=== PATIENT | female | born 1940 | race Caucasian/White ===

== ENCOUNTER 2022-01-20 01:50 | Emergency (ER) | payer MEDICARE, SELFPAY ==
[2022-01-20 02:09] VITALS: BP 150/60; PULSE 70; RESP 16; TEMP 36.7; O2SAT 93; BMI 48.0
[2022-01-20 02:23] LABS: Basophils # 0.1 K/mm3 (0-0.2); Basophils % 1.1 % (0.1-2.0); Eosinophils # 0.4 K/mm3 (0.0-0.4); Hematocrit 39.5 % (37.0-47.0); Lymphocytes # 2.4 K/mm3 (0.7-4.5); Lymphocytes % 29.5 % (10-50); Mean Corpuscular HGB Conc 32.8 g/dL (31.8-35.4); Mean Corpuscular Hemoglobin 31.9 pg (27.0-31.2); Mean Corpuscular Volume 97.3 fl (81-99); Mean Platelet Volume 8.5 fl (7.4-10.4); Monocytes # 0.5 K/mm3 (0.1-1.0); Monocytes % 6.6 % (1.7-9.3); Neutrophils # 4.7 K/mm3 (1.8-7.8); Neutrophils % 57.8 % (37.0-80.0); Platelet Count 287 K/mm3 (142-424); Red Blood Count 4.06 M/mm3 (4.20-5.40); Red Cell Distribution Width 14.9 % (11.5-17.5); White Blood Count 8.2 K/mm3 (4.8-10.8)
[2022-01-20 02:25] LABS: Chloride 100 mmol/L (98-107); Potassium 3.9 mmoL/L (3.5-5.1); Sodium 138 mmol/L (136-145)
[2022-01-20 02:33] LABS: C-Reactive Protein 1.8 mg/L (0-4)
[2022-01-20 02:39] LABS: NT Pro Brain Natriuretic Pep. 133 pg/mL (0-450)
[2022-01-20 02:47] LABS: Erythrocyte Sedimentation Rate 21 mm/hr (0-30); Procalcitonin 0.037 ng/mL (0.0-2.0)
[2022-01-20 02:54] LABS: Anion Gap 14.9 mEq/L (5-15); Blood Urea Nitrogen 14 mg/dl (7-17); Calcium 8.7 mg/dl (8.4-10.2); Carbon Dioxide 27 mmol/L (22.0-30.0); Creatinine Clearance Estimated 39 mL/min (50-200); Estimated Glomerular Filt Rate 119 ml/min (>60); GFR (African American) 144 ML/MIN (>60); Glucose 108 mg/dl (74-100)
--- NOTE | 2022-01-20 03:04 | HMH.EDEXTP ---
Discharge Plan Disposition Patient Disposition: Home, Self-Care Prescriptions Prescriptions: New cephalexin [cephalexin] 500 mg capsule 500 mg PO TID Qty: 30 0RF clindamycin HCl 300 mg capsule 300 mg PO TID Qty: 30 0RF No Action atorvastatin 40 mg Tablet 40 mg PO HS hydrochlorothiazide 50 mg Tablet 50 mg PO DAILY potassium chloride 10 mEq Tablet Extended Release 10 meq PO DAILY amlodipine 5 mg Tablet 5 mg PO DAILY propranolol 40 mg Tablet 40 mg PO BID ascorbic acid (vitamin C) [Vitamin C] 500 mg Tablet 500 mg PO DAILY benazepril 40 mg Tablet 40 mg PO DAILY oxybutynin chloride 5 mg Tablet 5 mg PO DAILY metformin 500 mg Tablet Extended Release 24 Hr 500 mg PO DAILY vitamin B complex Capsule 1 cap PO DAILY iron 18 mg Tablet 18 mg PO DAILY cholecalciferol (vitamin D3) [Vitamin D3] 125 mcg (5,000 unit) Tablet 125 mcg PO DAILY Referrals Follow up/Referrals: Ba Cast MD [Primary Care Provider] - See instructions Clinical Impressions Clinical Impression: Cellulitis Instructions Patient Instructions: DI for Cellulitis -- Adult Discharge ED Provider: Nam Redmond Extremity Problem HPI General Chief complaint: Extremity Problem,Nontraumatic Stated complaint: red,swollen legs with drainage Time Seen by Provider: 01/20/22 03:05 Mode of Arrival: Wheelchair Source of Information: Patient, Relative and Medical Record Limitations: No Limitations Description of Symptoms (Recalled from ER Triage Doc. by RN): Patient c/o bilateral calf and leg pain for the prior 3 days. States that she has thickened skin on both of his calfs and has had bumps on them as well, however, for the prior 3 days they have been very tender and reddened. Denies any injury. History of Present Illness HPI Narrative: pt with hx of htn and diabetes and has progressive pain and swelling lt>rt - has hx of cellulitis in past - no trauma MD Complaint: extremity pain and extremity swelling Onset (ago): day(s) Consistency: constant Location: left, right and lower extremity Associated symptoms: rash Related Data Home Medications Medication Instructions Recorded Confirmed amlodipine 5 mg tablet 5 mg PO DAILY High blood pressure 01/20/22 01/20/22 ascorbic acid (vitamin C) 500 mg 500 mg PO DAILY Supplement 01/20/22 01/20/22 tablet (Vitamin C) atorvastatin 40 mg tablet 40 mg PO HS High cholesterol 01/20/22 01/20/22 benazepril 40 mg tablet 40 mg PO DAILY High blood pressure 01/20/22 01/20/22 cholecalciferol (vitamin D3) 125 125 mcg PO DAILY Supplement 01/20/22 01/20/22 mcg (5,000 unit) tablet (Vitamin D3) hydrochlorothiazide 50 mg tablet 50 mg PO DAILY High blood pressure 01/20/22 01/20/22 iron 18 mg tablet 18 mg PO DAILY Supplement 01/20/22 01/20/22 metformin 500 mg tablet,extended 500 mg PO DAILY dm 01/20/22 01/20/22 release 24 hr oxybutynin chloride 5 mg tablet 5 mg PO DAILY overactive bladder 01/20/22 01/20/22 potassium chloride 10 mEq 10 meq PO DAILY Supplement 01/20/22 01/20/22 tablet,extended release propranolol 40 mg tablet 40 mg PO BID High blood pressure 01/20/22 01/20/22 vitamin B complex 1 cap PO DAILY Supplement 01/20/22 01/20/22 Previous Rx's Medication Instructions Recorded cephalexin 500 mg capsule 500 mg PO TID #30 caps 01/20/22 clindamycin HCl 300 mg capsule 300 mg PO TID #30 caps 01/20/22 Allergies Allergy/AdvReac Type Severity Reaction Status Date / Time furosemide [From Lasix] AdvReac Mild Dizziness Verified 01/20/22 02:15 PFSH PFS Social History Smoking Status: Never smoker alcohol intake: never current occupational status: retired Travel in the last 8 weeks: None ROS Obtained: Yes All systems reviewed & no additional complaints except as documented Physical Exam General General appearance: alert and obese Head Head exam: normocephalic Eye Eye exam: Present PERRL and EOMI ENT
--- NOTE | 2022-01-20 03:20 | PC.NURSE ---
pt up to restroom
[2022-01-20 03:53] VITALS: BP 142/64; PULSE 78; RESP 18; TEMP 36.8; O2SAT 98
[2022-01-20 04:02] LABS: Bilirubin,Unconjugated 0.2 mg/dL (0.0-1.1)
[2022-01-20 04:03] LABS: Alanine Aminotransferase 21 U/L (12-78); Alkaline Phosphatase 69 U/L (38-126); Aspartate Amino Transferase 31 U/L (14-36); Bilirubin,Indirect 0.1 mg/dL (0.0-0.9); Bilirubin,Total < 0.1 mg/dl (0.2-1.3); Total Protein,Serum 6.8 g/dl (6.3-8.2)
== END 2022-01-20 04:02 | disposition home or self-care (01) ==
PROVIDERS: Emergency Provider Emergency Medicine; PCP Emergency Medicine
DX: L03.115 Cellulitis of right lower limb; L03.116 Cellulitis of left lower limb; Z79.84 Long term (current) use of oral hypoglycemic drugs; Z79.899 Other long term (current) drug therapy; Z88.8 Allergy status to other drugs, medicaments and biological substances; I10 Essential (primary) hypertension; E11.9 Type 2 diabetes mellitus without complications; N32.81 Overactive bladder
CPT/HCPCS: 80048; 80076; 83036; 83880; 84145; 85025; 85651; 86140; 96365; 96375; 99284; J0696

== ENCOUNTER → 2022-02-06 10:25 | Outpatient (CLI) | payer MEDICARE, SELFPAY ==
--- NOTE | 2022-02-06 10:25 | MM_ITS ---
PROCEDURE INFORMATION: Exam: Bilateral Screening 3D Mammography Exam date and time: 02/06/2022 10:27 AM Age: 81 years old Clinical indication: Screening examination. No family history of breast cancer. TECHNIQUE: Imaging protocol: Bilateral Screening tomosynthesis and 2D mammography including computer-aided detection (CAD) when performed. COMPARISON: No relevant prior studies available. If prior mammograms are provided, I am happy to add an addendum. FINDINGS: MAMMOGRAPHY: Breast composition: The breasts are almost entirely fatty. Mass: No suspicious mass. Architectural distortion: None. Calcifications: No suspicious calcifications. Asymmetric density: None. Skin thickening: None. Axillary adenopathy: None. IMPRESSION: No mammographic evidence of malignancy. Annual screening is recommended unless otherwise clinically indicated. ASSESSMENT: BI-RADS Category 1: Negative
== END ==
PROVIDERS: PCP Family Medicine; Visit Provider Family Medicine
DX: I10 Essential (primary) hypertension; R60.9 Edema, unspecified; Z12.31 Encounter for screening mammogram for malignant neoplasm of breast; R06.02 Shortness of breath
CPT/HCPCS: 77063; 77067; 93306

== ENCOUNTER → 2022-03-03 15:51 | Outpatient (CLI) | payer MEDICARE, SELFPAY ==
--- NOTE | 2022-03-03 15:59 | XR_ITS ---
FINAL REPORT CLINICAL HISTORY: knee pain FINDINGS: RIGHT KNEE 3 views of the right knee were obtained. There is no acute fracture or dislocation. Visualized joint spaces are normally aligned. There is advanced medial compartment and patellofemoral joint space narrowing. There is a small joint effusion. IMPRESSION: Advanced changes of osteoarthritis in the medial compartment and patellofemoral joints. Reviewed, Interpreted and Dictated by Aguila Louis MD Transcribed by Jazzmine Nunes Authenticated and [facility]
--- NOTE | 2022-03-03 15:59 | XR_ITS ---
FINAL REPORT CLINICAL HISTORY: knee pain FINDINGS: LEFT KNEE 3 views of the left knee were obtained. There is no acute fracture or dislocation. Visualized joint spaces are normally aligned. There is advanced medial compartment and patellofemoral joint space narrowing. There is subchondral sclerosis. There is osteophyte formation. There is a small joint effusion. IMPRESSION: Advanced osteoarthritis in the medial compartment and patellofemoral joints. Reviewed, Interpreted and Dictated by Aguila Louis MD Transcribed by Jazzmine Nunes Authenticated and . [facility]
== END ==
LOC: RAD 15:54
PROVIDERS: PCP Family Medicine; Visit Provider Orthopaedic Surgery
DX: M25.561 Pain in right knee (principal); M25.562 Pain in left knee
CPT/HCPCS: 73562

== ENCOUNTER → 2022-04-03 14:20 | Outpatient (CLI) | payer MEDICARE, SELFPAY ==
[2022-04-03 18:44] LABS: Microscopic, Urine URINE MICROSCOPIC (MICROSCOPIC)
[2022-04-03 19:28] LABS: Appearance,Urine SL CLOUDY (Clear); Bilirubin,Urine Negative (Negative); Blood, Urine 2+ (Negative); Color,Urine YELLOW (Yellow); Glucose,Urine (UA) Negative (Negative); Ketones,Urine Negative (Negative); Leukocyte Esterase,Urine 3+ (Negative); Nitrate,Urine Negative (Negative); PH,Urine 6.5 (5.0-8.5); Protein,Urine Negative (Negative); Urobilinogen,Urine 0.2 EU/dl (0.2)
[2022-04-03 20:03] LABS: Bacteria,Urine 4+ /lpf; WBC,Urine 20-50 #/hpf (0-3)
== END ==
PROVIDERS: PCP Student in an Organized Health Care Education/Training Program; Visit Provider Student in an Organized Health Care Education/Training Program
DX: N39.0 Urinary tract infection, site not specified (principal); B96.29 Other Escherichia coli [E. coli] as the cause of diseases classified elsewhere
CPT/HCPCS: 81001; 87086; 87088; 87186

== ENCOUNTER → 2022-04-24 10:13 | Outpatient (CLI) | payer MEDICARE, SELFPAY ==
[2022-04-24 10:32] LABS: Microscopic, Urine URINE MICROSCOPIC (MICROSCOPIC)
[2022-04-24 12:17] LABS: Alanine Aminotransferase 23 U/L (12-78); Albumin Level 4.1 g/dl (3.5-5.0); Albumin/Globulin Ratio 1.6 (1.1-1.8); Alkaline Phosphatase 62 U/L (38-126); Anion Gap 11.2 mEq/L (5-15); Aspartate Amino Transferase 26 U/L (14-36); Bilirubin,Total 0.4 mg/dl (0.2-1.3); Blood Urea Nitrogen 15 mg/dl (7-17); Carbon Dioxide 30 mmol/L (22.0-30.0); Chloride 101 mmol/L (98-107); Chol/HDL Ratio 2.1 (1-3.5); Cholesterol 132 mg/dl (140-200); Estimated Glomerular Filt Rate 119 ml/min (>60); GFR (African American) 144 ML/MIN (>60); Globulin 2.6 g/dL (1.3-3.2); Glucose 121 mg/dl (74-100); HDL Cholesterol 63 mg/dl (40-60); Potassium 4.2 mmoL/L (3.5-5.1); Sodium 138 mmol/L (136-145); Total Protein,Serum 6.7 g/dl (6.3-8.2); Triglycerides 71 mg/dl (30-150); VLDL Cholesterol 14 mg/dL (0-40)
[2022-04-24 12:27] LABS: Hemoglobin A1C 6.2 % (4.0-6.0)
[2022-04-24 12:28] LABS: Direct LDL Cholesterol 49.72 mg/dL (100-129)
[2022-04-24 12:38] LABS: Appearance,Urine CLEAR (Clear); Bilirubin,Urine Negative (Negative); Blood, Urine Negative (Negative); Color,Urine YELLOW (Yellow); Glucose,Urine (UA) Negative (Negative); Ketones,Urine Negative (Negative); Leukocyte Esterase,Urine Negative (Negative); Nitrate,Urine Negative (Negative); PH,Urine 6.5 (5.0-8.5); Protein,Urine Negative (Negative); Specific Gravity, Urine 1.015 (1.005-1.030); Urobilinogen,Urine 0.2 EU/dl (0.2)
[2022-04-24 12:47] LABS: Thyroid Stimulating Hormone 1.19 uIU/mL (0.465-4.68)
[2022-04-24 12:53] LABS: Bacteria,Urine Trace /lpf; Squamous Epithelial Cell,Urine Occasional #/hpf (0-5); WBC,Urine Occasional #/hpf (0-3)
[2022-05-02 19:08] LABS: 1,25 Dihydroxy Vitamin D 57 pg/mL (.); 1,25-Dihydroxy, Vitamin D-2 <10 pg/mL (.); 1,25-Dihydroxy, Vitamin D-3 52 pg/mL (.)
== END ==
PROVIDERS: PCP Family Medicine; Visit Provider Family Medicine
DX: Z98.84 Bariatric surgery status (principal); I10 Essential (primary) hypertension; E11.9 Type 2 diabetes mellitus without complications; E78.5 Hyperlipidemia, unspecified; G89.29 Other chronic pain; L03.90 Cellulitis, unspecified; N32.81 Overactive bladder; M25.561 Pain in right knee; E66.9 Obesity, unspecified; Z68.42 Body mass index [BMI] 45.0-49.9, adult; Z79.84 Long term (current) use of oral hypoglycemic drugs
CPT/HCPCS: 36415; 80053; 80061; 81001; 82652; 83036; 84443

== ENCOUNTER → 2022-07-07 14:14 | Outpatient (CLI) | payer MEDICARE, SELFPAY ==
[2022-07-07 15:33] LABS: Hemoglobin A1C 6.4 % (4.0-6.0)
[2022-07-07 15:44] LABS: Alanine Aminotransferase 24 U/L (12-78); Albumin Level 4.1 g/dl (3.5-5.0); Albumin/Globulin Ratio 1.6 (1.1-1.8); Alkaline Phosphatase 59 U/L (38-126); Anion Gap 8.1 mEq/L (5-15); Aspartate Amino Transferase 25 U/L (14-36); Bilirubin,Total 0.4 mg/dl (0.2-1.3); Blood Urea Nitrogen 17 mg/dl (7-17); Calcium 8.8 mg/dl (8.4-10.2); Carbon Dioxide 32 mmol/L (22.0-30.0); Chloride 101 mmol/L (98-107); Estimated Glomerular Filt Rate 119 ml/min (>60); GFR (African American) 144 ML/MIN (>60); Globulin 2.5 g/dL (1.3-3.2); Glucose 106 mg/dl (74-100); Potassium 5.1 mmoL/L (3.5-5.1); Sodium 136 mmol/L (136-145); Total Protein,Serum 6.6 g/dl (6.3-8.2)
== END ==
PROVIDERS: PCP Family Medicine; Visit Provider Family Medicine
DX: E11.9 Type 2 diabetes mellitus without complications (principal); Z79.84 Long term (current) use of oral hypoglycemic drugs
CPT/HCPCS: 36415; 80053; 83036

== ENCOUNTER → 2022-10-06 09:40 | Outpatient (CLI) | payer MEDICARE, SELFPAY ==
[2022-10-06 10:23] LABS: Hemoglobin A1C 6.2 % (4.0-6.0)
[2022-10-06 10:34] LABS: Alanine Aminotransferase 22 U/L (12-78); Albumin Level 3.8 g/dl (3.5-5.0); Albumin/Globulin Ratio 1.6 (1.1-1.8); Alkaline Phosphatase 60 U/L (38-126); Anion Gap 12.1 mEq/L (5-15); Aspartate Amino Transferase 26 U/L (14-36); Bilirubin,Total 0.4 mg/dl (0.2-1.3); Blood Urea Nitrogen 15 mg/dl (7-17); Calcium 8.7 mg/dl (8.4-10.2); Carbon Dioxide 30 mmol/L (22.0-30.0); Chloride 100 mmol/L (98-107); Cholesterol 111 mg/dl (140-200); Estimated Glomerular Filt Rate 118 ml/min (>60); GFR (African American) 143 ML/MIN (>60); Globulin 2.4 g/dL (1.3-3.2); Glucose 129 mg/dl (74-100); HDL Cholesterol 55 mg/dl (40-60); Potassium 4.1 mmoL/L (3.5-5.1); Sodium 138 mmol/L (136-145); Total Protein,Serum 6.2 g/dl (6.3-8.2); Triglycerides 97 mg/dl (30-150); VLDL Cholesterol 19 mg/dL (0-40)
[2022-10-06 10:46] LABS: Direct LDL Cholesterol 44.88 mg/dL (100-129)
== END ==
PROVIDERS: PCP Nurse Practitioner Family; Visit Provider Family Medicine
DX: E11.9 Type 2 diabetes mellitus without complications (principal); I10 Essential (primary) hypertension; E78.5 Hyperlipidemia, unspecified; Z79.84 Long term (current) use of oral hypoglycemic drugs
CPT/HCPCS: 36415; 80053; 80061; 83036

== ENCOUNTER → 2022-10-15 12:42 | Outpatient (POV) | payer MEDICARE, MEDICAID, SELFPAY ==
--- NOTE | 2022-10-15 13:07 | EXP.PAIN.OV ---
HPI Data of Consult Patient: new to practice Consult date: 10/15/22 Requesting Physician: Marsha Mortensen APRN Primary Care Provider: Debbie Ann APRN Consult Narrative Reason for consult: Bilateral knee pain History of present illness: Ms. Belle is a 82 year old female who presents today as a new patient. She is a referral from Dr. Geronimo Mortensen's office. Today she rates her pain a 9 out of 10. Patient states her pain is all in her bilateral knees and has been going on for years. Patient denies any specific trauma or injury that initially led to her symptoms. She does state that it has progressively worsened over time and does describe it as a constant aching, throbbing sensation that is worse with increased activity. She does state that she has significant difficulty walking due to the pain and that she has been told that it is [id number]. She does state that her left leg is the worst of the 2. Patient does use a rolling walker to help with ambulation. Patient has had steroid injections intra-articularly which did help initially however over time became less effective. Patient has also had gel injections however the last 1 made her symptoms much worse. Patient denies any prior surgery on her knees. She does state that Dr. Mortensen's office had talked about replacements however due to her age and her not being sure how well she would recover from surgery she does not want to proceed forward with that option at this time. She does state the pain interferes with her ability to perform activities of daily living such as cooking and cleaning. Patient has tried [id number] medications such as Tylenol and ibuprofen along with heat and ice and topicals with no additional relief. Patient does currently use a cream called [employer] and states it does provide some additional relief. Patient is not on any scheduled medications. Her Farooq is [id number]. Its been reviewed and appropriate. CC: Marsha Mortensen APRN [facility] Disclaimer: The information contained in this section may have been updated after the patient was seen, as this information can be updated by other users. 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 Cellulitis Diabetes HTN (hypertension) Normal colonoscopy 2016 Stroke 09/1998 Surgical History Gastric bypass status for obesity History of gastric bypass monitor vitamin levels History of hysterectomy partial 1976 precancerous cells Hx of cholecystectomy Hx of tonsillectomy Family History Father Coronary artery disease Social History Smoking Status: Former smoker years smoked: 30 alcohol intake: never current occupational status: retired Travel in the last 8 weeks: None marital status: number of children: 2 Review of Systems Review of Systems Review of systems:: pertinent systems reviewed and negative unless documented below Review of systems (narrative): Review of Systems: General: No recent weight changes, no fever, no sleep disturbances Respiratory: No cough, no shortness of air, no recurring pulmonary infections Cardiovascular/peripheral vascular: No chest pain, no palpitations, no edema, no shortness of breath Gastrointestinal: No new onset incontinence, normal bowel movements reported Genitourinary: No new onset incontinence Musculoskeletal: Bilateral knee pain Psychiatric: [Normal mood/affect] Neurological: [Denies weakness in extremities], [denies balance issues] Meds Home Medications and Allergies Home Medications Medication Instructions Recorded Confirmed Type ascorbic acid (vitamin C) 500 mg 500 mg PO DAILY Supplement 01/20/22 10/15/22 History tablet (Vitamin C) amlodipine 5 mg tablet 5 mg PO DAILY High blood pressure 07/17/22 10/15/22 Rx #
[2022-10-15 13:16] VITALS: BP 103/39; PULSE 54; RESP 18; O2SAT 95; BMI 48.4
== END ==
PROVIDERS: PCP Nurse Practitioner Family; Visit Provider Nurse Practitioner Family
DX: M25.561 Pain in right knee; M25.562 Pain in left knee; G89.29 Other chronic pain; M17.0 Bilateral primary osteoarthritis of knee
CPT/HCPCS: 99202; G0463

== ENCOUNTER 2022-11-03 09:55 | Day surgery (SDC) | payer MEDICARE, MEDICAID, SELFPAY ==
[2022-11-03 10:11] VITALS: BP 97/57; PULSE 53; RESP 18; TEMP 36.4; O2SAT 93; BMI 48.2
[2022-11-03 10:36] VITALS: BP 131/62; PULSE 55; RESP 18; O2SAT 95
[2022-11-03 10:37] VITALS: BP 131/62; PULSE 55; RESP 18; O2SAT 95
[2022-11-03 10:42] VITALS: BP 135/59; PULSE 52; RESP 18; O2SAT 93
--- NOTE | 2022-11-03 10:42 | EXP.PAIN.PRO ---
Procedure Date: 11/03/22 Time: 10:28 Anesthesiologist:: Víctor Butler CRNA Complications:: None Pre-procedure Diagnosis:: Degenerative osteoarthritis left knee. Chronic left knee pain. Post-procedure Diagnosis:: Same. Indications for Procedure:: Patient is a very pleasant 82-year-old female that comes our clinic today for left knee genicular nerve block. Patient reports constant pain in the left knee. Patient reports left knee pain increases significantly with ambulation. She rates her pain 9/10. She describes pain as constant, dull, sharp, stabbing, dull, aching. Procedure Details:: Left knee genicular block Informed consent was obtained and the risk and benefits of the procedure was explained to the patient. The patient was taken to the procedure room. The left knee was prepped using ChloraPrep. I placed 22-gauge needles into the area of the left superior medial genicular nerve, left superior lateral genicular nerve and right inferior medial genicular nerve. Needle placement was confirmed in AP and lateral views with dye. We then injected bupivacaine 0.25% 3 mL's and Depo-Medrol 25 mg into each area of the left superior medial genicular nerve, left superior lateral genicular nerve and left inferior medial genicular nerve. Patient tolerated the procedure well with no complications. Plan and Disposition:: Patient was reevaluated 10 minutes post procedure. She reports 90+ percent improvement in terms of her left knee pain. Patient was discharged without incident.
== END 2022-11-03 10:42 | disposition home or self-care (01) ==
PROVIDERS: PCP Nurse Practitioner Family; Visit Provider Nurse Anesthetist, Certified Registered
DX: M17.12 Unilateral primary osteoarthritis, left knee (principal); M25.562 Pain in left knee; G89.29 Other chronic pain
CPT/HCPCS: 64454; J1040

== ENCOUNTER → 2022-11-16 11:08 | Outpatient (POV) | payer MEDICARE, SELFPAY ==
--- NOTE | 2022-11-16 11:27 | A.OFFVIS_ITS ---
[facility] Pain Management SOAP Note Subjective:: Patient is a pleasant 82-year-old female who presents today for follow-up of left genicular nerve block #1 on 11/03/2022. We are currently treating the patient for osteoarthritis of bilateral knees/pain of bilateral knees, chronic pain. Today she rates her pain a 7 out of 10. Patient states that immediately following this injection she had 100% relief and was actually able to walk down the hallway following the injection without her cane. Patient states that she continues to get significant improvement of upwards of at least 50 to 75%. She states she has been able to increase her activity during the mornings and feels like she is able to move around easier and overall better function. She does state though the more that she does during the day she will have worsening pain at night however she states it is a night and day difference from what she was prior to the injection. Patient is currently managed with compounding cream. Her Farooq is [id number]. Its been reviewed and appropriate. Review of Systems: General: No recent weight changes, no fever, no sleep disturbances Respiratory: No cough, no shortness of air, no recurring pulmonary infections Cardiovascular/peripheral vascular: No chest pain, no palpitations, no edema, no shortness of breath Gastrointestinal: No new onset incontinence, normal bowel movements reported Genitourinary: No new onset incontinence Musculoskeletal: Left knee pain Psychiatric: [Normal mood/affect] Neurological: [Denies weakness in extremities], [denies balance issues] Objective:: Physical Exam: General: Alert and oriented x3, no acute distress, pleasant and cooperative Lungs: Respirations even and unlabored, symmetrical chest expansion Eyes: PERRL Musculoskeletal: Flexion and extension of left knee somewhat guarded secondary to pain, [antalgic gait noted] Neurological: Speech clear, no gross sensory deficit Assessment:: Osteoarthritis bilateral knees, bilateral knee pain, chronic pain Plan:: Patient has had significant improvement following her first left genicular nerve block and does not require any additional injective therapy at this time. Patient will return to clinic in 1 month for reevaluation of symptoms and plan of care. Patient has been instructed to contact the clinic with any concerns before the next appointment. Dr. Richard has reviewed this note and agrees with this plan of care. This note was dictated using voice recognition software and make contain errors or omissions. [facility] Disclaimer: The information contained in this section may have been updated after the patient was seen, as this information can be updated by other users. 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
[2022-11-16 11:39] VITALS: BP 119/47; PULSE 56; RESP 18; O2SAT 98; BMI 47.9
== END ==
LOC: SC.PAIN 11:09
PROVIDERS: Visit Provider Nurse Practitioner Family
DX: M17.0 Bilateral primary osteoarthritis of knee (principal); M25.561 Pain in right knee; M25.562 Pain in left knee; G89.29 Other chronic pain
CPT/HCPCS: 99212; G0463

== ENCOUNTER → 2022-12-14 11:32 | Outpatient (POV) | payer MEDICARE, MEDICAID, SELFPAY ==
--- NOTE | 2022-12-14 11:47 | EXP.PAIN.SOA ---
[facility] Pain Management SOAP Note Subjective:: Patient is a pleasant 82-year-old female who presents today for follow-up. We are currently treating the patient for osteoarthritis bilateral knees, bilateral knee pain, chronic pain. Today she rates her pain a 8 out of 10. Patient denies any new trauma or injury. She does state her pain is in her bilateral knees and describes it as an aching, throbbing sensation with occasional sharp shooting pains. Patient did previously have a left genicular nerve block that provided approximately 100% relief for the first 2 weeks and then upwards of 75% relief up until the last couple of weeks. Patient does state that she has been up on her feet for longer periods of time and may have caused worsening symptoms into her joints. Patient does state that her left knee continues to be the worst knee. Patient is interested in repeating her previous injections. Patient does state the pain interferes with her ability perform activities of daily living such as cooking or cleaning. Patient is prescribed compounding cream that she states continues to provide additional relief. Her Farooq is [id number]. Its been reviewed and appropriate. Review of Systems: General: No recent weight changes, no fever, no sleep disturbances Respiratory: No cough, no shortness of air, no recurring pulmonary infections Cardiovascular/peripheral vascular: No chest pain, no palpitations, no edema, no shortness of breath Gastrointestinal: No new onset incontinence, normal bowel movements reported Genitourinary: No new onset incontinence Musculoskeletal: Bilateral knee pain Psychiatric: [Normal mood/affect] Neurological: [Denies weakness in extremities], [denies balance issues] Objective:: Physical Exam: General: Alert and oriented x3, no acute distress, pleasant and cooperative Lungs: Respirations even and unlabored, symmetrical chest expansion Eyes: PERRL Musculoskeletal: Flexion and extension of bilateral knees somewhat guarded secondary to pain, [antalgic gait noted] Neurological: Speech clear, no gross sensory deficit Assessment:: Bilateral knee osteoarthritis, bilateral knee pain, chronic pain Plan:: Patient is experiencing worsening pain in her bilateral knees with limited range of motion. Patient does state that her left knee is the worst joint. I have discussed with the patient that she may benefit from repeat left genicular nerve block. Risk and benefits were explained to the patient and she would like to proceed forward with this plan of care. Patient is not on any blood thinners. I have also discussed with the patient that after we do her left knee we can try her right knee with the same injection at a later date. We will follow-up with this at future visits. Patient will be scheduled for her second genicular nerve block. Patient has been instructed to contact the clinic with any concerns before the next appointment. Dr. Richard has reviewed this note and agrees with this plan of care. This note was dictated using voice recognition software and make contain errors or omissions. [facility] Disclaimer: The information contained in this section may have been updated after the patient was seen, as this information can be updated by other users. 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
[2022-12-14 12:18] VITALS: BP 120/62; PULSE 52; RESP 18; O2SAT 95; BMI 40.8
== END ==
PROVIDERS: Visit Provider Nurse Practitioner Family
DX: M17.0 Bilateral primary osteoarthritis of knee (principal); M25.561 Pain in right knee; M25.562 Pain in left knee; G89.29 Other chronic pain
CPT/HCPCS: 99212; G0463

== ENCOUNTER 2022-12-22 12:32 | Day surgery (SDC) | payer MEDICARE, MEDICAID, SELFPAY ==
[2022-12-22 13:02] VITALS: BP 103/79; PULSE 56; RESP 18; TEMP 36.3; O2SAT 92; BMI 48.9
[2022-12-22 13:11] VITALS: BP 142/55; PULSE 57; RESP 18; O2SAT 95
[2022-12-22 13:12] VITALS: BP 142/55; PULSE 57; RESP 18; O2SAT 95
[2022-12-22 13:22] VITALS: BP 147/83; PULSE 55; RESP 20
--- NOTE | 2022-12-22 13:55 | EXP.PAIN.PRO ---
Procedure Date: 12/22/22 Time: 13:30 Anesthesiologist:: Víctor Butler CRNA Complications:: None Pre-procedure Diagnosis:: Osteoarthritis left knee. Chronic left knee pain. Post-procedure Diagnosis:: Same Indications for Procedure:: Patient is a very pleasant 82-year-old female comes our clinic today for a left genicular nerve block repeat injection. Patient reports several weeks of significant improvement after receiving her initial left genicular nerve block. Patient rates her pain today 7/10. Procedure Details:: Left knee genicular block Informed consent was obtained and the risk and benefits of the procedure was explained to the patient. The patient was taken to the procedure room. The left knee was prepped using ChloraPrep. I placed 22-gauge needles into the area of the left superior medial genicular nerve, left superior lateral genicular nerve and left inferior medial genicular nerve. Needle placement was confirmed in AP and lateral views with dye. We then injected bupivacaine 0.25% 3 mL's and Depo-Medrol 25 mg into each area of the left superior medial genicular nerve, left superior lateral genicular nerve and left inferior medial genicular nerve. Patient tolerated the procedure well with no complications. Plan and Disposition:: We will follow-up with her in 2 weeks. Will reevaluate symptoms at that time. Plan and Disposition:: Patient was discharged without incident.
== END 2022-12-22 13:23 | disposition home or self-care (01) ==
LOC: SC.PAINP 12:33
PROVIDERS: PCP Nurse Practitioner Family; Visit Provider Nurse Anesthetist, Certified Registered
DX: M17.12 Unilateral primary osteoarthritis, left knee (principal); M25.562 Pain in left knee; G89.29 Other chronic pain
CPT/HCPCS: 64454; J1040

== ENCOUNTER → 2023-01-07 10:10 | Outpatient (POV) | payer MEDICARE, MEDICAID, SELFPAY ==
--- NOTE | 2023-01-07 10:47 | A.OFFVIS_ITS ---
[facility] Pain Management SOAP Note Subjective:: Patient is a pleasant 82-year-old female who presents today for follow-up of left genicular nerve block on 2022. We are currently treating the patient for osteoarthritis bilateral knees, bilateral knee pain, chronic pain syndrome. Today she rates her pain a 5 out of 10. Patient denies any new trauma or injury. Patient states she has had at least 60% improvement following this injection and feels like it is still continuing to provide additional relief. Patient states she has been able to increase her activity with decreased pain symptoms. Patient does also use her compounded cream. Patient states at the time of this injection she did have fluid buildup on her left knee that was causing additional pain however the lower injection did help allow that fluid to be released and when she went home she did have quite a bit of drainage however the pain did resolve more. Her Farooq is [phone]. Its been reviewed and appropriate. Review of Systems: General: No recent weight changes, no fever, no sleep disturbances Respiratory: No cough, no shortness of air, no recurring pulmonary infections Cardiovascular/peripheral vascular: No chest pain, no palpitations, no edema, no shortness of breath Gastrointestinal: No new onset incontinence, normal bowel movements reported Genitourinary: No new onset incontinence Musculoskeletal: Left knee pain Psychiatric: [Normal mood/affect] Neurological: [Denies weakness in extremities], [denies balance issues] Objective:: Physical Exam: General: Alert and oriented x3, no acute distress, pleasant and cooperative Lungs: Respirations even and unlabored, symmetrical chest expansion Eyes: PERRL Musculoskeletal: Flexion and extension of left knee somewhat guarded secondary to pain, [antalgic gait noted] Neurological: Speech clear, no gross sensory deficit Assessment:: Osteoarthritis bilateral knees, bilateral knee pain, chronic pain syndrome Plan:: Patient has had significant improvement following her left genicular nerve block and does not require any additional injective therapy at this time. Patient will return to clinic in 1 month for reevaluation of symptoms and plan of care. Patient has been instructed to contact the clinic with any concerns before the next appointment. Dr. Richard has reviewed this note and agrees with this plan of care. This note was dictated using voice recognition software and make contain errors or omissions. [facility] Disclaimer: The information contained in this section may have been updated after the patient was seen, as this information can be updated by other users. 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
[2023-01-07 12:20] VITALS: BP 123/60; PULSE 53; RESP 20; O2SAT 94; BMI 48.4
== END ==
PROVIDERS: PCP Nurse Practitioner Family; Visit Provider Nurse Practitioner Family
DX: M17.0 Bilateral primary osteoarthritis of knee (principal); M25.561 Pain in right knee; M25.562 Pain in left knee; G89.4 Chronic pain syndrome
CPT/HCPCS: 99212; G0463

== ENCOUNTER → 2023-01-19 15:56 | Outpatient (CLI) | payer MEDICARE, MEDICAID, SELFPAY ==
[2023-01-19 15:51] LABS: Basophils # 0.1 K/mm3 (0-0.2); Basophils % 0.6 % (0.1-2.0); Eosinophils # 0.3 K/mm3 (0.0-0.4); Eosinophils % 2.9 % (0.1-12.0); Hematocrit 48.5 % (37.0-47.0); Hemoglobin 15.1 g/dL (12.2-16.2); Lymphocytes # 1.9 K/mm3 (0.7-4.5); Lymphocytes % 20.8 % (10-50); Mean Corpuscular Hemoglobin 30.6 pg (27.0-31.2); Mean Corpuscular Volume 98.6 fl (81-99); Mean Platelet Volume 9.5 fl (7.4-10.4); Monocytes # 0.6 K/mm3 (0.1-1.0); Monocytes % 6.6 % (1.7-9.3); Neutrophils # 6.3 K/mm3 (1.8-7.8); Neutrophils % 69.1 % (37.0-80.0); Platelet Count 264 K/mm3 (142-424); Red Blood Count 4.92 M/mm3 (4.20-5.40); Red Cell Distribution Width 13.6 % (11.5-17.5); White Blood Count 9.1 K/mm3 (4.8-10.8)
[2023-01-19 16:26] LABS: Alanine Aminotransferase 22 U/L (12-78); Albumin Level 4.3 g/dl (3.5-5.0); Albumin/Globulin Ratio 1.4 (1.1-1.8); Alkaline Phosphatase 72 U/L (38-126); Anion Gap 13.1 mEq/L (5-15); Aspartate Amino Transferase 24 U/L (14-36); Bilirubin,Total 0.4 mg/dl (0.2-1.3); Blood Urea Nitrogen 20 mg/dl (7-17); Calcium 9.4 mg/dl (8.4-10.2); Carbon Dioxide 29 mmol/L (22.0-30.0); Chloride 103 mmol/L (98-107); Chol/HDL Ratio 2.7 (1-3.5); Cholesterol 142 mg/dl (140-200); Estimated Glomerular Filt Rate 80 ml/min (>60); GFR (African American) 97 ML/MIN (>60); Globulin 3.1 g/dL (1.3-3.2); Glucose 106 mg/dl (74-100); HDL Cholesterol 52 mg/dl (40-60); Potassium 5.1 mmoL/L (3.5-5.1); Sodium 140 mmol/L (136-145); Total Protein,Serum 7.4 g/dl (6.3-8.2); Triglycerides 115 mg/dl (30-150); VLDL Cholesterol 23 mg/dL (0-40)
[2023-01-19 16:37] LABS: Direct LDL Cholesterol 68.53 mg/dL (100-129)
[2023-01-19 16:42] LABS: Free T4 (Free Thyroxine) 1.06 ng/dl (0.78-2.19)
[2023-01-19 16:43] LABS: 25-OH Vitamin D, Total 27.3 ng/mL (30-100)
[2023-01-19 16:56] LABS: Thyroid Stimulating Hormone 1.32 uIU/mL (0.465-4.68)
[2023-01-19 17:40] LABS: Vitamin B12 > 1000 pg/mL (239-931)
[2023-01-19 18:04] LABS: Hemoglobin A1C 6.3 % (4.0-6.0)
== END ==
PROVIDERS: PCP Nurse Practitioner Family; Visit Provider Nurse Practitioner Family
DX: E11.9 Type 2 diabetes mellitus without complications (principal); E53.8 Deficiency of other specified B group vitamins; I10 Essential (primary) hypertension; E55.9 Vitamin D deficiency, unspecified; E78.5 Hyperlipidemia, unspecified; Z87.891 Personal history of nicotine dependence; E66.9 Obesity, unspecified; Z68.42 Body mass index [BMI] 45.0-49.9, adult; Z79.84 Long term (current) use of oral hypoglycemic drugs
CPT/HCPCS: 80053; 80061; 82306; 82607; 83036; 84439; 84443; 85025

== ENCOUNTER → 2023-02-04 13:18 | Outpatient (POV) | payer MEDICARE, MEDICAID, SELFPAY ==
--- NOTE | 2023-02-04 13:49 | EXP.PAIN.SOA ---
[facility] Pain Management SOAP Note Subjective:: Patient is a pleasant 82-year-old female who presents today for follow-up. We are currently treating the patient for osteoarthritis bilateral knees, bilateral knee pain, chronic pain syndrome. Today she rates her pain a 8 out of 10. Patient states over the last week she has noticed an area of cellulitis in her right lower leg. Patient does state that she has had this on 2 different occasions over the years. She states that she has recently been to her primary care doctor however at that time they did not send in an antibiotic and that it has progressively worsened. She states that she did recently try and recontact their office however the provider was not available. Patient does also state that she is starting to experience more pain in her left knee. She previously had a genicular nerve block that did provide at least 60% improvement at our last visit and was still helping. She does state today that it is back to its baseline. Her Farooq is [phone]. Its been reviewed and appropriate. Review of Systems: General: No recent weight changes, no fever, no sleep disturbances Respiratory: No cough, no shortness of air, no recurring pulmonary infections Cardiovascular/peripheral vascular: No chest pain, no palpitations, no edema, no shortness of breath Gastrointestinal: No new onset incontinence, normal bowel movements reported Genitourinary: No new onset incontinence Musculoskeletal: Left knee pain, right leg pain related to cellulitis Psychiatric: [Normal mood/affect] Neurological: [Denies weakness in extremities], [denies balance issues] Objective:: Physical Exam: General: Alert and oriented x3, no acute distress, pleasant and cooperative Lungs: Respirations even and unlabored, symmetrical chest expansion Eyes: PERRL Musculoskeletal: Flexion and extension of lumbar [spine] somewhat guarded secondary to pain, [antalgic gait noted] Neurological: Speech clear, no gross sensory deficit Skin: Right lower calf posteriorly is taut with moderate edema, and warm to touch, no drainage noted, small 3 cm ulceration noted that is currently not open Assessment:: Osteoarthritis bilateral knees, bilateral knee pain, chronic pain syndrome, right lower leg cellulitis Plan:: I have counseled the patient due to her current cellulitis noted at her right lower leg we will put off any treatment for her left knee pain until this infection is cleared up. I will send in a prescription of Bactrim 800/160 mg every 6 hours with a 14-day supply of this medication. I have counseled the patient that if she has any worsening symptoms or signs of systemic infection she is to go to ER for evaluation. I have recommended that she use an ink pen to draw around the border of the area of cellulitis to monitor its spread. Patient will return to clinic in 2 weeks for reevaluation of symptoms and plan of care. Patient has been instructed to contact the clinic with any concerns before the next appointment. Dr. Richard has reviewed this note and agrees with this plan of care. This note was dictated using voice recognition software and make contain errors or omissions. [facility] Disclaimer: The information contained in this section may have been updated after the patient was seen, as this information can be updated by other users. Medical History (Updated 01/19/23 @ 14:19 by Debbie Ann APRN) Blind left eye Cellulitis Diabetes HTN (hypertension) Normal colonoscopy Plantar wart Stroke Yeast dermatitis Surgical History Gastric bypass status for obesity History of gastric bypass History of hysterectomy Hx of cholecystectomy Hx of tonsillectomy Family History Father Coronary artery disease Social History Smoking Status: Former smoker years smoked: 30 alcohol intake:
[2023-02-04 13:56] VITALS: BP 128/75; PULSE 57; RESP 18; O2SAT 93; BMI 47.7
== END | disposition home or self-care (01) ==
PROVIDERS: PCP Nurse Practitioner Family; Visit Provider Nurse Practitioner Family
DX: M17.0 Bilateral primary osteoarthritis of knee (principal); M25.561 Pain in right knee; M25.562 Pain in left knee; G89.4 Chronic pain syndrome; L03.115 Cellulitis of right lower limb
CPT/HCPCS: 99212; G0463

== ENCOUNTER 2023-02-06 10:29 | Emergency (ER) | payer MEDICARE, MEDICAID, SELFPAY ==
[2023-02-06 10:32] VITALS: BP 126/57; PULSE 53; RESP 18; TEMP 36.7; O2SAT 97; BMI 48.4
--- NOTE | 2023-02-06 10:44 | PC.NURSE ---
dr. garza at BS
--- NOTE | 2023-02-06 11:07 | HMH.EDGENADL ---
Discharge Plan Disposition Patient Disposition: Home, Self-Care Condition: Good Prescriptions Prescriptions: No Action aspirin [Adult Low Dose Aspirin] 81 mg tablet,delayed release (DR/EC) 81 mg PO DAILY ferrous sulfate [Feosol] 325 mg (65 mg iron) tablet 325 mg PO DAILY [id number] Tablet 1 tab PO .COMPLEX Rx Instructions: 1 tab orally daily 1000; cholecalciferol (vitamin D3) 25 mcg (1,000 unit) capsule 25 mcg PO DAILY amlodipine 5 mg tablet 5 mg PO DAILY Qty: 90 1RF atorvastatin 40 mg tablet 40 mg PO HS Qty: 90 1RF benazepril 40 mg tablet 40 mg PO DAILY Qty: 90 1RF hydrochlorothiazide 50 mg tablet 50 mg PO DAILY Qty: 90 1RF metformin 1,000 mg tablet extended release 24 hr 1,000 mg PO DAILY Qty: 90 1RF oxybutynin chloride 15 mg tablet extended release 24hr 30 mg PO DAILY 90 Days Qty: 180 1RF pantoprazole [Protonix] 40 mg tablet,delayed release (DR/EC) 40 mg PO DAILY Qty: 90 1RF potassium chloride 10 mEq tablet extended release 10 meq PO DAILY Qty: 90 1RF propranolol 40 mg tablet 40 mg PO BID Qty: 180 1RF nystatin 100,000 unit/gram cream 1 applic topical BID PRN (Reason: yeast) Qty: 30 0RF sulfamethoxazole-trimethoprim [Bactrim] 400-80 mg tablet 2 tab PO BID Qty: 56 0RF ascorbic acid (vitamin C) [Vitamin C] 500 mg Tablet 500 mg PO DAILY (DME) comp.stocking,knee,long,medium Misc See Rx Instructions .Route Rx Instructions: As directed Referrals Follow up/Referrals: Gilbert Padron DO [Primary Care Provider] - See instructions Activity Restrictions/Add. Instructions Additional Instructions/Restrictions: Please follow-up with your primary care provider. Please return to the emergency department if you develop any new or worsening symptoms or become concerned for your health. As we discussed, recommend that you closely follow-up with your PCP, pain clinic for possible other pain medications. Recommend that you continue to apply an Ranulfo wrap, compression stocking. Recommend that you complete the course of Bactrim although as we discussed, believe this is more consistent with venous stasis dermatitis. Please return to the emergency department should you have swelling just in 1 leg, worsening redness, severe pain, shortness of breath, difficulty breathing or chest pain. Clinical Impressions Clinical Impression: Acute venous stasis dermatitis Instructions Patient Instructions: DI for Edema Due to Venous Stasis Discharge ED Provider: Roosevelt Frey I General Adult HPI General Chief complaint: Skin/Abscess/Foreign Body Stated complaint: SWELLING IN RT LEG, OPEN SORE Time Seen by Provider: 02/06/23 10:37 Mode of Arrival: Ambulatory Source of Information: Patient Limitations: No Limitations Description of Symptoms (Recalled from ER Triage Doc. by RN): Pt reports redness and swelling to RLE. Pt reports open area to posterior R calf area, abrasion like area. Pt started on bactrim Pt presented to ED to a melvin boot dressing in place to RLE. Pt reports has supplies from previous home health visits. History of Present Illness HPI narrative: Patient is an 82-year-old female with history of osteoarthritis, prior gastric bypass, left eye blindness, prior CVA, HTN, T2DM presenting to the emergency department for pain in the bilateral lower extremities, swelling. History was conducted with the patient at bedside. Patient reports that for the past several weeks, she has had worsening swelling of the bilateral lower extremities as well as an area that has broken open on the posterior right calf. She reports that it has been leaking fluid. She has intermittently been applying compression stockings, reports that she has significant improvement in symptoms, but states that the stockings compress her knee, and she eventually has to take them off secondary to pain around her knee. She denies any fever,
[2023-02-06 11:27] VITALS: BP 118/49; PULSE 58; RESP 18; TEMP 36.7; O2SAT 96
== END 2023-02-06 11:59 | disposition home or self-care (01) ==
PROVIDERS: Emergency Provider Emergency Medicine; PCP Internal Medicine
DX: I87.2 Venous insufficiency (chronic) (peripheral) (principal); I10 Essential (primary) hypertension; E11.9 Type 2 diabetes mellitus without complications; M19.09 Primary osteoarthritis, other specified site; Z79.84 Long term (current) use of oral hypoglycemic drugs; Z86.73 Personal history of transient ischemic attack (TIA), and cerebral infarction without residual deficits; L97.219 Non-pressure chronic ulcer of right calf with unspecified severity
CPT/HCPCS: 99283

== ENCOUNTER → 2023-02-18 10:46 | Outpatient (POV) | payer MEDICARE, MEDICAID, SELFPAY ==
--- NOTE | 2023-02-18 11:06 | EXP.PAIN.SOA ---
[facility] Pain Management SOAP Note Subjective:: Patient is a pleasant 82-year-old female who presents today for 2-week follow-up of right leg cellulitis. We are currently treating the patient for osteoarthritis bilateral knees, chronic pain syndrome, right lower leg cellulitis. Today she rates her pain a 10 out of 10. Patient denies any new trauma or injury. She does state that her pain is all in her bilateral knees she does state from our last visit the cellulitis in her right lower leg has gotten much better. She states that the redness has decreased as well as the warmth to touch and the ulceration area has cleared up. Patient does state that the prescription we gave her did provide significant improvement. She does state that she was applying some Vaseline to the low leg and this has helped as well. Patient has had a genicular nerve block that did provide 60% improvement in her left knee previously however we did at her last visit determined to put this on hold related to the cellulitis infection. Patient has been prescribed cream in the past and she does state that this does help and she uses it on her knees. Her Farooq was unavailable during today's exam. Review of Systems: General: No recent weight changes, no fever, no sleep disturbances Respiratory: No cough, no shortness of air, no recurring pulmonary infections Cardiovascular/peripheral vascular: No chest pain, no palpitations, no edema, no shortness of breath Gastrointestinal: No new onset incontinence, normal bowel movements reported Genitourinary: No new onset incontinence Musculoskeletal: Bilateral knee pain Psychiatric: [Normal mood/affect] Neurological: [Denies weakness in extremities], [denies balance issues] Objective:: Physical Exam: General: Alert and oriented x3, no acute distress, pleasant and cooperative Lungs: Respirations even and unlabored, symmetrical chest expansion Eyes: PERRL Musculoskeletal: Flexion and extension of bilateral knees somewhat guarded secondary to pain, [antalgic gait noted] Neurological: Speech clear, no gross sensory deficit Assessment:: Bilateral knee pain, osteoarthritis bilateral knees, chronic pain syndrome, right lower leg cellulitis Plan:: I have counseled the patient that I would like to wait an additional 2 weeks to verify that her cellulitis infection is cleared up before proceeding forward on injection therapy to her knees. Patient agrees with this plan of care. Patient will return to clinic in 2 weeks for reevaluation of symptoms and plan of care. Patient has been instructed to contact the clinic with any concerns before the next appointment. Dr. Richard has reviewed this note and agrees with this plan of care. This note was dictated using voice recognition software and make contain errors or omissions. [facility] Disclaimer: The information contained in this section may have been updated after the patient was seen, as this information can be updated by other users. Medical History (Updated 02/06/23 @ 11:06 by Roosevelt Frey MD) Blind left eye Cellulitis Diabetes HTN (hypertension) Normal colonoscopy Plantar wart Stroke Yeast dermatitis Surgical History Gastric bypass status for obesity History of gastric bypass History of hysterectomy Hx of cholecystectomy Hx of tonsillectomy Family History Father Coronary artery disease Social History Smoking Status: Never smoker years smoked: 30 alcohol intake: never current occupational status: retired Travel in the last 8 weeks: None marital status: number of children: 2
[2023-02-18 12:18] VITALS: BP 105/62; PULSE 53; RESP 18; O2SAT 94; BMI 48.4
== END ==
PROVIDERS: PCP Emergency Medicine; Visit Provider Nurse Practitioner Family
DX: L03.115 Cellulitis of right lower limb (principal); M17.0 Bilateral primary osteoarthritis of knee; M25.561 Pain in right knee; M25.562 Pain in left knee; G89.4 Chronic pain syndrome
CPT/HCPCS: 99212; G0463

== ENCOUNTER → 2023-03-04 13:17 | Outpatient (POV) | payer MEDICARE, MEDICAID, SELFPAY ==
--- NOTE | 2023-03-04 13:28 | EXP.PAIN.SOA ---
[facility] Pain Management SOAP Note Subjective:: Patient is a pleasant 82-year-old female who presents today for 2-week follow-up. We are currently treating the patient for osteoarthritis bilateral knees, chronic pain syndrome, right lower leg cellulitis. Today she rates her pain a 10 out of 10. Patient denies any new trauma or injury. She states that she has been experiencing worsening pain in her legs and knees. Patient does describe this as a aching, throbbing sensation that is worse with ambulation or activity. She does state that the right leg cellulitis has completely cleared up. Patient did previously have 2 genicular nerve blocks on her left knee that did provide significant relief of upwards of 60% or more. Patient does state that her left knee pain is worse than her right. We had planned on proceeding forward with the ablation however the cellulitis caused it to be put on hold. Patient is interested in starting back injection therapy. She does state that the pain interferes with her ability perform activities of daily living such as cooking and cleaning or even simple ambulation. She does state that she has a follow-up with her primary care provider coming up and that he had discussed prior about possibly starting the patient on Ozempic to help with her diabetes as well as losing weight. Patient states that she is agreeable to this change and she will keep us posted how it goes. Patient does state that she does experience some swelling into her lower extremities and that she is currently on hydrochlorothiazide to help with the swelling and blood pressure. Review of Systems: General: No recent weight changes, no fever, no sleep disturbances Respiratory: No cough, no shortness of air, no recurring pulmonary infections Cardiovascular/peripheral vascular: No chest pain, no palpitations, no edema, no shortness of breath Gastrointestinal: No new onset incontinence, normal bowel movements reported Genitourinary: No new onset incontinence Musculoskeletal: Bilateral knee pain Psychiatric: [Normal mood/affect] Neurological: [Denies weakness in extremities], [denies balance issues] Objective:: Physical Exam: General: Alert and oriented x3, no acute distress, pleasant and cooperative Lungs: Respirations even and unlabored, symmetrical chest expansion Eyes: PERRL Musculoskeletal: Flexion and extension of left knee somewhat guarded secondary to pain, [antalgic gait noted] Neurological: Speech clear, no gross sensory deficit Assessment:: Osteoarthritis bilateral knees, chronic pain syndrome, right leg lower cellulitis Plan:: Patient continues to experience significant pain in her left knee with limited range of motion. I have discussed with the patient that she may benefit from a genicular RFA. Risk and benefits were explained to the patient and she would like to proceed forward with this plan of care. Patient has had 2 successful genicular nerve blocks in her left knee that provided 60% improvement or more. Patient will be scheduled for a left genicular RFA. Patient has been instructed to contact the clinic with any concerns before the next appointment. Dr. Richard has reviewed this note and agrees with this plan of care. This note was dictated using voice recognition software and make contain errors or omissions. [facility] Disclaimer: The information contained in this section may have been updated after the patient was seen, as this information can be updated by other users. Medical History (Updated 02/06/23 @ 11:06 by Roosevelt Frey MD) Blind left eye Cellulitis Diabetes HTN (hypertension) Normal colonoscopy Plantar wart Stroke Yeast dermatitis Surgical History Gastric bypass status for obesity History of gastric bypass History of hysterectomy Hx of cholecystectomy Hx of tonsillectomy Family History Father Coronary artery di
[2023-03-04 13:43] VITALS: BP 105/69; PULSE 53; RESP 18; O2SAT 93; BMI 48.4
== END ==
LOC: SC.PAIN 13:18
PROVIDERS: PCP Emergency Medicine; Visit Provider Nurse Practitioner Family
DX: M17.0 Bilateral primary osteoarthritis of knee (principal); G89.4 Chronic pain syndrome; L03.115 Cellulitis of right lower limb
CPT/HCPCS: 99212; G0463

== ENCOUNTER 2023-03-30 13:20 | Day surgery (SDC) | payer MEDICARE, MEDICAID, SELFPAY ==
[2023-03-30 13:33] VITALS: BP 122/78; PULSE 64; RESP 16; TEMP 36.3; O2SAT 95; BMI 45.3
[2023-03-30 13:41] VITALS: BP 147/78; PULSE 63; O2SAT 90
[2023-03-30 13:51] VITALS: BP 147/78; PULSE 76; O2SAT 92
[2023-03-30 13:55] VITALS: BP 126/71; PULSE 67; RESP 16; O2SAT 95
--- NOTE | 2023-03-30 13:55 | P.PCN_ITS ---
Procedure Date: 03/30/23 Time: 13:45 Anesthesiologist:: Víctor Butler CRNA Complications:: None Pre-procedure Diagnosis:: DJD left knee. Osteoarthritis left knee. Chronic left knee pain. Post-procedure Diagnosis:: Same. Indications for Procedure:: Patient is a very pleasant 82-year-old female comes our clinic today for a left knee genicular radiofrequency ablation. Patient had 2 successful left genicular blocks. Patient describes her left knee pain as constant, dull, aching. Jose breen reports having extreme difficulty with ambulation secondary to left knee pain. She rates her pain 8/10. Procedure Details:: Left knee genicular RFA Informed consent was obtained risk and benefits of the procedure were explained to the patient. Patient was taken the procedure room. The left knee was prepped using ChloraPrep. The skin and subcutaneous tissues were anesthetized using lidocaine. I placed 20-gauge RF needles into the superior lateral genicular nerve area of the superior medial genicular nerve area and inferior medial genicular nerve area we underwent sensory stimulation. There is good sensory stimulation at 1 V. We underwent motor stimulation. There was no motor stimulation at 3 V. We then anesthetized all 3 nerves with bupivacaine and Depo- Medrol. We then burned each genicular nerve superior lateral, superior medial and inferior medial 80 ?C for 4 minutes. Patient tolerated procedure well with no complications. Plan and Disposition: We will follow-up with him in 2 weeks. Will reevaluate symptoms at that time. Plan and Disposition:: Patient was discharged without incident.
== END 2023-03-30 13:55 | disposition home or self-care (01) ==
PROVIDERS: PCP Emergency Medicine; Visit Provider Nurse Anesthetist, Certified Registered
DX: M17.12 Unilateral primary osteoarthritis, left knee (principal); M25.562 Pain in left knee; G89.29 Other chronic pain
CPT/HCPCS: 64624; J1030

== ENCOUNTER 2023-10-25 09:00 | Outpatient (RCR) | payer MEDICARE, MEDICAID, SELFPAY | END 2023-10-25 09:05 | disposition home or self-care (01) | LOC: PT 09:00 | PROVIDERS: Visit Provider Emergency Medicine | DX: R60.0 Localized edema (principal) | CPT/HCPCS: 97140; 97163 ==